=== PATIENT | female | born 1965 | race Caucasian/White ===

== ENCOUNTER 2016-02-26 08:07 | Observation (INO) | payer BC, OTHER ==
[~2016-02-26] VITALS: Ht 162.6 cm; Wt 93.6 kg
[2016-02-26] VITALS (14 sets, daily range): BP systolic 136–152; BP diastolic 66–93; PULSE 71–79; RESP 16–20; TEMP 97.7–98.7; O2SAT 94–96
[~2016-02-26 08:07] MED LIST: IBUP-238 PO; LORTA5 PO; OXYC-360 PO
[2016-02-26] MEDS ORDERED: SODIUM CHLOR 0.9% 1000 ML INJ 1,000 ML IV ONE (08:17)
[2016-02-26 08:26] LABS: AUTOMATED NEUTROPHIL # 7.3 TH/MM3 (1.8-7.7); BASOPHIL # 0.1 TH/MM3 (0-0.2); BASOPHIL % 0.5 % (0.0-2.0); EOSINOPHIL # 0.2 TH/MM3 (0-0.4); HEMATOCRIT 48.9 % (35.0-46.0); HEMO FLAGS DIFF FINAL; LYMPH % 19.3 % (9.0-44.0); MEAN CELL VOLUME 91.8 FL (80.0-100.0); MEAN CORPUSCULAR HEMOGLOBIN 29.7 PG (27.0-34.0); MEAN CORPUSCULAR HGB CONC 32.3 % (32.0-36.0); MONO % 7.1 % (0.0-8.0); NEUT % 71.1 % (16.0-70.0); PLATELET COUNT 321 TH/MM3 (150-450); RED BLOOD COUNT 5.32 MIL/MM3 (4.00-5.30); RED CELL DISTRIBUTION WIDTH 12.6 % (11.6-17.2); WHITE BLOOD COUNT 10.3 TH/MM3 (4.0-11.0)
--- NOTE | 2016-02-26 08:26 | PD ---
HPI Chief Complaint: neuro symptoms Time Seen by Provider: 08:11 Travel History International Travel<30 days: No Contact w/Intl Traveler<30days: No Traveled to known affect area: No History of Present Illness HPI The patient is a 51-year-old female who presents to the emergency department for neuro symptoms. The patient states she awakened at 6 AM, showered, and was put in the birds away. Patient states when she bent over to put the birds away she became dizzy. The patient states she felt dizzy, lightheaded, had blurry vision, and felt weak on the right side of her body. The patient states that when she was walking she felt she was walking off balance, walking to the right. She denied any dysarthria, however, states she was not speaking and at that time. The patient states her symptoms have slightly improved, however, she still feels weak on the right side when ambulating. The patient states her blurry vision has resolved. The patient does have a history of tobacco use, borderline hypertension, but takes no medications. She denies any history of hyperlipidemia, diabetes, previous CVA/ TIA, or previous history of CAD. The patient does not have a primary physician. PFSH Past Medical History Narrative Medical Possible borderline hypertension Medical History: Denies Significant Hx Past Surgical History Narrative Surgical Had her teeth removed Social History Alcohol Use: No Tobacco Use: Yes (1ppd) Allergies-Medications (Allergen,Severity, Reaction): Coded Allergies: No Known Allergies (Unverified , 02/26/16) Reported Meds & Prescriptions Reported Meds & Active Scripts Active No Active Prescriptions or Reported Medications Review of Systems Except as stated in HPI: all other systems reviewed are Neg General / Constitutional: No: Fever Eyes: Positive: Blurred Vision HENT: Positive: Lightheadedness, No: Headaches Cardiovascular: No: Chest Pain or Discomfort Respiratory: No: Shortness of Breath Gastrointestinal: No: Nausea, Vomiting, Abdominal Pain Musculoskeletal: Positive: Weakness Neurologic: Positive: Weakness, Ataxia, No: Headache, Change in Mentation, Paresthesia, Sensory Disturbance Physical Exam Narrative GENERAL: Awake, alert, pleasant 51-year-old female who appears her stated age and is in no acute respiratory distress. SKIN: Warm and dry. HEAD: Atraumatic. Normocephalic. EYES: Pupils equal and round. Patient was wearing glasses. She is able to see fingers at a distance of 2 feet without difficulty. Pupils equal round reactive to light. EOMs are intact. Visual durán are symmetric. ENT: No nasal bleeding or discharge. Mucous membranes pink and moist. Upper dentures in place. NECK: Trachea midline. No JVD. CARDIOVASCULAR: Regular rate and rhythm. No murmur appreciated. RESPIRATORY: No accessory muscle use. Clear to auscultation. Breath sounds equal bilaterally. GASTROINTESTINAL: Abdomen soft, non-tender, nondistended. No rebound tenderness. MUSCULOSKELETAL: No obvious deformities. No clubbing. No cyanosis. No edema. NEUROLOGICAL: Awake and alert. No obvious cranial nerve deficits. Motor grossly within normal limits. Normal speech. Patient is alert and oriented 4. There is no drift of the upper or lower extremities. Smile is symmetric. Visual durán are symmetric. Patient is able to see fingers at a distance of 2 feet without difficulty. Sensation is symmetric and present bilaterally on the face, arms, legs. Finger to nose is normal. [id number] is normal. Ambulation was attempted, the patient appears slightly off balance, but was able to ambulate. PSYCHIATRIC: Appropriate mood and affect; insight and judgment normal. Data Data Last Documented VS Vital Signs Date Time Temp Pulse Resp B/P Pulse Ox O2 Delivery O2 Flow Rate FiO2 02/26/16 08:45 78 16 142/76 96 Room Air 02/26/16 08:15 97.8 Orders Cath For Specimen (02/26/16 08:17) Neuro Checks Q2HX12,Q4H (02/26/16 08:17) Nursing Bedside Swallow Assess .ONCE (02/26/16 08:17) Activity Bed Rest (02/26/16 08:17) Diet Npo (02/26/16 Breakfast) Prothrombin Time / Inr (Pt) (02/26/16 08:17) Act Partial Throm Time (Ptt) (02/26/16 08:17) Complete Blood Count With Diff (02/26/16 08:17) Basic Metabolic Panel (Bmp) (02/26/16 08:17) Fibrinogen (02/26/16 08:17) Creatine Kinase (Cpk) (02/26/16 08:17) Troponin I (02/26/16 08:17) Ua Includes Microscopic (02/26/16 08:17) Drug Screen, Random Urine (02/26/16 08:17) Type And Screen (02/26/16 08:17) Ct Brain W/O Iv Contrast(Rout) (02/26/16 ) Electrocardiogram (02/26/16 ) Beta Hcg (Quant/Titer) (02/26/16 08:17) Consult Neurology (02/26/16 08:17) Sodium Chlor 0.9% 1000 Ml Inj (Ns 1000 M (02/26/16 08:17) Blood Glucose (02/26/16 08:17) Ecg Monitoring (02/26/16 08:17) Iv Access Insert/Monitor (02/26/16 08:17) NPO (02/26/16 08:17) Oximetry (02/26/16 08:17) Oxygen Administration (02/26/16 08:17) Resp Oxygen Brad C Titrat 1-4 L (02/26/16 08:17) Aspirin (Aspirin) (02/26/16 08:45) (Hub Use Only)Inp Phy Cons/Ref (02/26/16 ) Labs Laboratory Tests Test 02/26/16 08:15 White Blood Count 10.3 TH/MM3 Red Blood Count 5.32 MIL/MM3 Hemoglobin 15.8 GM/DL Hematocrit 48.9 % Mean Corpuscular Volume 91.8 FL Mean Corpuscular Hemoglobin 29.7 PG Mean Corpuscular Hemoglobin 32.3 % Concent Red Cell Distribution Width 12.6 % Platelet Count 321 TH/MM3 Mean Platelet Volume 8.2 FL Neutrophils (%) (Auto) 71.1 % Lymphocytes (%) (Auto) 19.3 % Monocytes (%) (Auto) 7.1 % Eosinophils (%) (Auto) 2.0 % Basophils (%) (Auto) 0.5 % Neutrophils # (Auto) 7.3 TH/MM3 Lymphocytes # (Auto) 2.0 TH/MM3 Monocytes # (Auto) 0.7 TH/MM3 Eosinophils # (Auto) 0.2 TH/MM3 Basophils # (Auto) 0.1 TH/MM3 CBC Comment DIFF FINAL Differential Comment Prothrombin Time 10.2 SEC Prothromb Time International 0.9 RATIO Ratio Activated Partial 26.2 SEC Thromboplast Time Fibrinogen 348 mg/dL Sodium Level 143 MEQ/L Potassium Level 4.0 MEQ/L Chloride Level 107 MEQ/L Carbon Dioxide Level 27.7 MEQ/L Anion Gap 8 MEQ/L Blood Urea Nitrogen 18 MG/DL Creatinine 0.61 MG/DL Estimat Glomerular Filtration 103 ML/MIN Rate Random Glucose 134 MG/DL Calcium Level 9.2 MG/DL Total Creatine Kinase 62 U/L Troponin I LESS THAN 0.02 NG/ML Human Chorionic Gonadotropin, 3 MIU/ML Quant MDM Medical Screen Exam Complete: Yes Emergency Medical Condition: Yes Medical Record Reviewed: Yes EKG Prior to Arrival: No Differential Diagnosis Differential diagnoses includes vertebral basilar insufficiency, CVA, TIA, vertigo, intracranial hemorrhage, hyponatremia. Narrative Course IV was established, labs are drawn and sent, and the patient was placed on cardiac telemetry monitoring and continuous pulse oximetry monitoring. Stroke scale was called as patient does have mild ataxia with ambulation, however, her stroke scale is 0. I discussed the patient with the on-call neurologist, Dr. Bethea, who agrees no TPA is indicated as patient scale is 0. The patient went immediately to CT for CT of the brain. I discussed the CT findings with the radiologist, states CT the brain is negative. The patient is not a candidate for TPA, stroke scale 0, but has continuing difficulty with ambulation with proceed weakness of the right side. Therefore, patient will be 23 hour observation for MRI of the brain to evaluate for VBI. CT the brain was negative and the patient was administered aspirin 325 mg orally. The patient does not have a primary physician, therefore, the on-call medical service was paged for 23 hour observation. Stroke Alert NIHSS NIH Stroke Scale Result: 0 NIHSS Time Completed: 08:20 Thrombolytic Contraindications Contraindications Comment: The patient's symptoms had somewhat improved according to the patient and the patient's NIHSS was 0. Procedures Interpretation(s) EKG reveals normal sinus rhythm with a rate of 77. No ischemic changes or ectopy noted. Last Impressions Head CT 02/26/16 0000 Signed Impressions: Service Date/Time: Friday, February 26, 2016 08:21 - CONCLUSION: Normal examination. Pa Novoa MD Laboratory Tests Test 02/26/16 08:15 White Blood Count 10.3 TH/MM3 Red Blood Count 5.32 MIL/MM3 Hemoglobin 15.8 GM/DL Hematocrit 48.9 % Mean Corpuscular Volume 91.8 FL Mean Corpuscular Hemoglobin 29.7 PG Mean Corpuscular Hemoglobin 32.3 % Concent Red Cell Distribution Width 12.6 % Platelet Count 321 TH/MM3 Mean Platelet Volume 8.2 FL Neutrophils (%) (Auto) 71.1 % Lymphocytes (%) (Auto) 19.3 % Monocytes (%) (Auto) 7.1 % Eosinophils (%) (Auto) 2.0 % Basophils (%) (Auto) 0.5 % Neutrophils # (Auto) 7.3 TH/MM3 Lymphocytes # (Auto) 2.0 TH/MM3 Monocytes # (Auto) 0.7 TH/MM3 Eosinophils # (Auto) 0.2 TH/MM3 Basophils # (Auto) 0.1 TH/MM3 CBC Comment DIFF FINAL Differential Comment Prothrombin Time 10.2 SEC Prothromb Time International 0.9 RATIO Ratio Activated Partial 26.2 SEC Thromboplast Time Fibrinogen 348 mg/dL Sodium Level 143 MEQ/L Potassium Level 4.0 MEQ/L Chloride Level 107 MEQ/L Carbon Dioxide Level 27.7 MEQ/L Anion Gap 8 MEQ/L Blood Urea Nitrogen 18 MG/DL Creatinine 0.61 MG/DL Estimat Glomerular Filtration 103 ML/MIN Rate Random Glucose 134 MG/DL Calcium Level 9.2 MG/DL Total Creatine Kinase 62 U/L Troponin I LESS THAN 0.02 NG/ML Human Chorionic Gonadotropin, 3 MIU/ML Quant Physician Communication Physician Communication The on-call medical service was paged for 23 hour observation. I discussed the patient with Dr. Ibrahim who agrees with 23 hour observation. Diagnosis Diagnosis: Primary Impression: Right sided weakness Additional Impression: Ataxia Admitting Physician Requests: Observation Scripts No Active Prescriptions or Reported Meds Condition: Stable Jonathan Monique MD Feb 26, 2016 08:26
[2016-02-26 08:32] LABS: CHLORIDE 107 MEQ/L (98-107); SODIUM (NA) 143 MEQ/L (136-145)
[2016-02-26 08:35] LABS: ANION GAP 8 MEQ/L (5-15); BICARBONATE 27.7 MEQ/L (21.0-32.0); BLOOD UREA NITROGEN 18 MG/DL (7-18)
--- NOTE | 2016-02-26 08:38 | RADHPO ---
EXAM DATE/TIME: 02/26/2016 08:21 [facility] COMPARISON: No previous studies available for comparison. INDICATIONS : Stroke alert. Unsteady gait towards right side. Dizziness. Now resolved. RADIATION DOSE: 57.81 CTDIvol (mGy) This report was called by Dr. Paredes to Dr. Monique at 8: 37 AM. MEDICAL HISTORY : None SURGICAL HISTORY : None. ENCOUNTER: Initial ACUITY: 1 day PAIN SCALE: 0/10 LOCATION: cranial TECHNIQUE: Multiple contiguous axial images were obtained of the head. Using automated exposure control and adj ustment of the mA and/or kV according to patient size, radiation dose was kept as low as reasonably a chievable to obtain optimal diagnostic quality images. FINDINGS: CEREBRUM: The ventricles are normal for age. No evidence of midline shift, mass lesion, hemorrhage or acute in farction. No extra-axial fluid collections are seen. POSTERIOR FOSSA: The cerebellum and brainstem are intact. The 4th ventricle is midline. The cerebellopontine angle i s unremarkable. EXTRACRANIAL: The visualized portion of the orbits is intact. SKULL: The calvaria is intact. No evidence of skull fracture. CONCLUSION: Normal examination. Pa Novoa MD on February 26, 2016 at 8:34 Board Certified Radiologist. This report was verified electronically.
[2016-02-26 08:39] LABS: GLOMERULAR FILTRATION RATE 103 ML/MIN (>89)
[2016-02-26 08:43] LABS: BETA HCG QUANT 3 MIU/ML (0-5)
[2016-02-26 08:44] LABS: CREATINE KINASE 62 U/L (26-192)
[2016-02-26] MEDS ORDERED: ASPIRIN 325 MG TAB PO ONE (08:45)
[2016-02-26 09:01] LABS: APTT (PATIENT) 26.2 SEC (24.3-30.1); INTERNATIONAL NORMALIZED RATIO 0.9 RATIO; PROTHROMBIN TIME - PATIENT 10.2 SEC (9.8-11.6)
[2016-02-26] MEDS ORDERED: GLUCAGON 1 MG/ML VIAL IM/SQ PRN (09:45)
[2016-02-26] MEDS ORDERED: DEXTROSE 50% IN WATER 50 ML VIAL(D50) IV PUSH PRN (09:45)
[2016-02-26] MEDS ORDERED: SODIUM CHLORIDE 0.9% FLUSH 5 ML FLUSH IVF PRN (09:45)
--- NOTE | 2016-02-26 10:35 | EKG ---
Date Performed: 02/26/2016 Time Performed: 08:32:16 PTAGE: 51 years EKG: Sinus rhythm Normal ECG NO PREVIOUS TRACING DOCTOR: Krish Andrade Interpretating Date/Time 05/28/2016 08:25:14
[2016-02-26] MEDS: INSULIN ASPART SUPPLEMENTAL SCALE SQ SCH ×3 (11:00→21:00)
[2016-02-26 11:21] LABS: BLOOD, URINE TRACE (NEG); GLUCOSE,URINE NEG (NEG); KETONE, URINE NEG (NEG); NITRITE,URINE NEG (NEG)
[2016-02-26 11:28] LABS: AMPHETAMINE, URINE NEG (NEG); COCAINE, URINE NEG (NEG); METHOD OF COLLECTION CATH; URINE COLOR YELLOW (YELLW/STRAW)
[2016-02-26 11:29] LABS: RBC, URINE 0-3 /hpf (0-3)
[2016-02-26 11:36] LABS: BARBITURATES, URINE NEG (NEG)
--- NOTE | 2016-02-26 15:28 | HHI.HP ---
[facility] No Primary Care Physician Admission Diagnosis right sided weakness with ataxia, dizziness, rule out TIA/CVA/VBI Diagnoses: Chief Complaint: Weakness, dizziness Travel History International Travel<30 Days: No Contact w/Intl Traveler <30 Da: No Traveled to Known Affected Are: No History of Present Illness Patient is a 51-year-old female with minimal past history who came into the hospital after acute onset of dizziness after bending over. 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 Patient came to the emergency room for further evaluation. Patient actually says this has never happened to her before. She denies any speech dysfunction no headache nor shortness of breath. Patient has never had chest pain or dyspnea on exertion. Patient does have some chest discomfort associated with heartburn for which she has taken Zantac. Occasionally this is radiating into her left arm. The symptoms are nonexertional and appeared to a occur when she is at rest. She does not exercise and has put on about 30 pounds this year. Review of Systems Constitutional: COMPLAINS OF: Dizziness, DENIES: Diaphoretic episodes, Fatigue , Fever, Weight gain, Weight loss, Chills, Change in appetite, Night Sweats Endocrine: DENIES: Abnorml menstrual pattern, Heat/cold intolerance, Polydipsia , Polyuria, Polyphagia Eyes: DENIES: Blurred vision, Diplopia, Eye inflammation, Eye pain, Vision loss , Photosensitivity, Double Vision Ears, nose, mouth, throat: DENIES: Tinnitus, Hearing loss, Vertigo, Nasal discharge, Oral lesions, Throat pain, Hoarseness, Ear Pain, Running Nose, Epistaxis, Sinus Pain, Toothache, Odynophagia Respiratory: DENIES: Apneas, Cough, Snoring, Wheezing, Hemoptysis, Sputum production, Shortness of breath Cardiovascular: DENIES: Chest pain, Palpitations, Syncope, Dyspnea on Exertion , PND, Lower Extremity Edema, Orthopnea, Claudication Gastrointestinal: DENIES: Abdominal pain, Black stools, Bloody stools, Constipation, Diarrhea, Nausea, Vomiting, Difficulty Swallowing, Anorexia Genitourinary: DENIES: Abnormal vaginal bleeding, Dysmenorrhea, Dyspareunia, Sexual dysfunction, Urinary frequency, Urinary incontinence, Urgency, Hematuria , Dysuria, Nocturia, Vaginal discharge Integumentary: DENIES: Abnormal pigmentation, Pruritus, Rash, Nail changes, Breast masses, Breast skin changes, Nipple discharge Immunologic/allergic: DENIES: Eczema, Urticaria Neurologic: COMPLAINS OF: Abnormal gait, Localized weakness (right extremity) Psychiatric: DENIES: Anxiety, Confusion, Mood changes, Depression, Hallucinations, Agitation, Suicidal Ideation, Homicidal Ideation, Delusions Other dyspepsea Past Family Social History Past Medical History Denies Past Surgical History Dental extraction Reported Medications None Allergies: Coded Allergies: No Known Allergies (Unverified , 02/26/16) Active Ordered Medications Reviewed and are in the the medical record Family History Family history diabetes, hypertension, no strokes Social History Smokes a pack a day, no alcohol, Physical Exam Vital Signs Vital Signs Date Time Temp Pulse Resp B/P Pulse Ox O2 Delivery O2 Flow Rate FiO2 02/26/16 12:05 98.7 75 17 152/93 94 02/26/16 11:00 75 18 144/85 96 Room Air 02/26/16 10:00 74 16 136/67 96 Room Air 02/26/16 09:15 76 16 139/66 96 Room Air 02/26/16 09:00 76 16 136/66 96 Room Air 02/26/16 08:45 78 16 142/76 96 Room Air 02/26/16 08:34 16 96 Room Air 02/26/16 08:34 96 Room Air 02/26/16 08:15 79 16 96 Room Air 02/26/16 08:15 97.8 79 16 145/73 96 Physical Exam GENERAL: This is a well-nourished, well-developed patient, in no apparent distress. SKIN: No rashes, ecchymoses or lesions. Cool and dry. HEAD: Atraumatic. Normocephalic. No temporal or scalp tenderness. EYES: Pupils equal round and reactive. Extraocular motions intact. No scleral icterus. No injection or drainage. ENT: Nose without bleeding, purulent drainage or septal hematoma. Throat without erythema, tonsillar hypertrophy or exudate. Uvula midline. Airway patent. NECK: Trachea midline. No JVD or lymphadenopathy. Supple, nontender, no meningeal signs. CARDIOVASCULAR: Regular rate and rhythm without murmurs, gallops, or rubs. RESPIRATORY: Clear to auscultation. Breath sounds equal bilaterally. No wheezes , rales, or rhonchi. GASTROINTESTINAL: Abdomen soft, non-tender, nondistended. No hepato-splenomegaly , or palpable masses. No guarding. MUSCULOSKELETAL: Extremities without clubbing, cyanosis, or edema. No joint tenderness, effusion, or edema noted. No calf tenderness. Negative Homans sign bilaterally. NEUROLOGICAL: Awake and alert. Cranial nerves II through XII intact. Motor and sensory grossly within normal limits. Five out of 5 muscle strength in all muscle groups. Normal speech. Laboratory Laboratory Tests Test 02/26/16 02/26/16 08:15 11:00 White Blood Count 10.3 Red Blood Count 5.32 Hemoglobin 15.8 Hematocrit 48.9 Mean Corpuscular Volume 91.8 Mean Corpuscular Hemoglobin 29.7 Mean Corpuscular Hemoglobin 32.3 Concent Red Cell Distribution Width 12.6 Platelet Count 321 Mean Platelet Volume 8.2 Neutrophils (%) (Auto) 71.1 Lymphocytes (%) (Auto) 19.3 Monocytes (%) (Auto) 7.1 Eosinophils (%) (Auto) 2.0 Basophils (%) (Auto) 0.5 Neutrophils # (Auto) 7.3 Lymphocytes # (Auto) 2.0 Monocytes # (Auto) 0.7 Eosinophils # (Auto) 0.2 Basophils # (Auto) 0.1 CBC Comment DIFF FINAL Differential Comment Prothrombin Time 10.2 Prothromb Time International 0.9 Ratio Activated Partial 26.2 Thromboplast Time Fibrinogen 348 Sodium Level 143 Potassium Level 4.0 Chloride Level 107 Carbon Dioxide Level 27.7 Anion Gap 8 Blood Urea Nitrogen 18 Creatinine 0.61 Estimat Glomerular Filtration 103 Rate Random Glucose 134 Calcium Level 9.2 Total Creatine Kinase 62 Troponin I LESS THAN 0.02 Human Chorionic Gonadotropin, 3 Quant Blood Type O POSITIVE Antibody Screen NEGATIVE Blood Bank Comment Urine Collection Type CATH Urine Color YELLOW Urine Turbidity CLEAR Urine pH 7.0 Urine Specific [place] 1.009 Urine Protein NEG Urine Glucose (UA) NEG Urine Ketones NEG Urine Occult Blood TRACE Urine Nitrite NEG Urine Bilirubin NEG Urine Leukocyte Esterase NEG Urine RBC 0-3 Urine Amorphous Sediment FEW Urine Collection Time 11:00 Urine Opiates Screen NEG Urine Barbiturates Screen NEG Urine Amphetamines Screen NEG Urine Benzodiazepines Screen NEG Urine Cocaine Screen NEG Urine Cannabinoids Screen NEG Result Diagram: 02/26/16 0815 02/26/16 0815 Imaging Last Impressions Head CT 02/26/16 0000 Signed Impressions: Service Date/Time: Friday, February 26, 2016 08:21 - CONCLUSION: Normal examination. Pa Novoa MD Assessment and Plan Problem List: (1) Neurological symptoms ICD Code: R29.90 Status: Acute Plan: R/O CVA/TIA, cervical radiculopathy, vertigo, patient with Ataxia Images pending Follow-up 2-D echo Orthostatic vital signs neuro consult pending (2) Atypical chest pain ICD Code: R07.89 Status: Acute Plan: May be GI related Patient will need serial cardia Enzymes and follow up EKG Current ekg on my review is normal in rate and rhythm Discussed Condition With Patient, Alejandra Gomez M.D., MD Feb 26, 2016 15:28
[2016-02-26] MEDS ORDERED: LORazepam 2 MG/ML VIAL IV PUSH ONE (16:00)
[2016-02-26] MEDS ORDERED: MECLIZINE HCL 25 MG TAB PO PRN (16:00)
[2016-02-26 16:16] LABS: HEMOGLOBIN A1b 1.9 %; HEMOGLOBIN Ao 84.9 %; HEMOGLOBIN LA1C 2.2 %
[2016-02-26] MEDS: PANTOPRAZOLE SOD 40 MG DELAYED RELEASE TAB PO SCH (17:13)
[2016-02-26] MEDS: SODIUM CHLORIDE 0.9% FLUSH 5 ML FLUSH IVF SCH (21:48)
[2016-02-27] VITALS: BP 136/80; PULSE 71; RESP 20; TEMP 96.7; O2SAT 96
[2016-02-27 04:00] VITALS: BP 135/79; PULSE 69; RESP 20; TEMP 96.9; O2SAT 95
[2016-02-27] MEDS: INSULIN ASPART SUPPLEMENTAL SCALE SQ SCH ×3 (06:14→16:00)
[2016-02-27 08:00] VITALS: PULSE 85; O2SAT 96
[2016-02-27] MEDS ORDERED: ASPIRIN EC 81 MG TABEC PO SCH (09:00)
[2016-02-27 09:06] VITALS: BP 139/71; PULSE 70; RESP 16; TEMP 97; O2SAT 96
[2016-02-27] MEDS: PANTOPRAZOLE SOD 40 MG DELAYED RELEASE TAB PO SCH (09:08)
[2016-02-27] MEDS: SODIUM CHLORIDE 0.9% FLUSH 5 ML FLUSH IVF SCH (09:11)
[2016-02-27 09:23] LABS: HDL CHOLESTEROL 33.3 MG/DL (40.0-60.0)
--- NOTE | 2016-02-27 09:45 | MB ---
cc: HARRIETT MIRANDA MD DATE OF CONSULTATION 02/26/2016 REASON FOR CONSULTATION Stroke alert. HISTORY OF THE PRESENT ILLNESS A 51-year-old female with no significant past medical history who was brought into the hospital at [facility] after an acute onset of dizziness after bending over. The patient stated that she woke up this morning normal with no symptoms and then when she got up to pick her purse she felt dizzy and she thought that she had right upper and lower extremity numbness rather than weakness. She denies any difficulty in speech as she states that she did not speak at that time and she denies any face numbness as well. She denies any history of TIA or stroke or a similar episode in the past. She describes the feeling as being lightheaded, no double vision and she felt nauseous and actually she threw up. No difficulty in speech. No headache, no loss of consciousness or disorientation or loss of sphincter control. She denies any history of chronic sinus infection or chronic middle ear infection. She denies any ringing in the ears or difficulty hearing. The symptoms resolved within 30 minutes. The patient is not on anti platelet medication. REVIEW OF SYSTEMS A 12-point review of systems is negative except for what is stated in the HPI. PAST MEDICAL HISTORY Not applicable. PAST SURGICAL HISTORY Dental extraction. MEDICATIONS None. ALLERGIES No known allergies. FAMILY HISTORY Positive for diabetes, hypertension. No history of strokes. SOCIAL HISTORY Smokes one-pack a day. Denies alcohol and illicit drug use. PHYSICAL EXAMINATION General: Well-nourished, good historian. Not in apparent distress. HEENT: Atraumatic, normocephalic. Intact vision and intact hearing. NECK: Trachea in the midline. No carotid bruits. No signs of meningeal irritation. CARDIOVASCULAR: Regular rate and rhythm. No murmurs. RESPIRATORY: Clear to auscultation. No wheezes. MUSCULOSKELETAL: Extremities without clubbing, cyanosis or edema. Moves all extremities equally. NEUROLOGICAL: Awake, alert, oriented to time, person and place. Intact speech. Intact speech content. Cranial nerves II-XII are intact. Motor system 5/5 bilateral, symmetrical throughout. Normal tone. No abnormal movements. Sensation is intact bilateral and symmetrical. No sensory extinction. Cerebellar signs intact bilateral and symmetrical [id number] and [id number]. Reflexes 2+ bilateral symmetrical throughout. Plantars are bilaterally downgoing. Gait and stance, intact stance. Negative Romberg sign. Normal gait. PSYCHOLOGIC: Intact judgment and behavior. No hallucinations. LABORATORY DATA White blood cells 10.3, hemoglobin 15.8, MCV 91.8, platelet count 321. INR 0.9.Sodium 143, potassium 4.0, BUN 18, creatinine 0.61. Urine tox is negative. IMAGING - Head CT scan normal examination with no acute intracranial abnormality. DIAGNOSTIC IMPRESSION 1. Transient ischemic attack. 2. Peripheral vertigo. PLAN 1. Neurological checks q.4h. 2. Aspirin 81 mg daily. 3. Meclizine 25 mg q.8h as needed. 4. MRI brain. 5. Carotid ultrasound. 6. Carotid echo. 7. Telemetry. 8. DVT prophylaxis. 9. Fall precautions. 10. GI prophylaxis. Thank you for the opportunity to participate in the care of your patient. MD LAUREN Mccallum/LILY /6:37 PM /9:37 AM MACARIO
[2016-02-27] MEDS ORDERED: LORazepam 2 MG/ML VIAL IV PUSH ONE (10:45)
--- NOTE | 2016-02-27 11:59 | RADHPO ---
EXAM DATE/TIME: 02/27/2016 11:28 [facility] COMPARISON: CT BRAIN W/O CONTRAST, February 26, 2016, 8:21. INDICATIONS : Right sided weakness. MEDICAL HISTORY : None. SURGICAL HISTORY : None. ENCOUNTER: Initial ACUITY: 2 day PAIN SCORE: 0/10 LOCATION: head TECHNIQUE: Multiplanar, multisequence MRI of the brain was performed without contrast. FINDINGS: CEREBRUM: The ventricles are normal for age. No evidence of midline shift, mass lesion, hemorrhage or acute in farction. No extraaxial fluid collections are seen. The pituitary gland and suprasellar cistern are normal in configuration. WHITE MATTER: No significant signal abnormalities are seen in the white matter. POSTERIOR FOSSA: The cerebellum and brainstem are intact. The 4th ventricle is midline. The cerebellopontine angle is unremarkable. The cerebellar tonsils are normal in position. DIFFUSION IMAGING: No focal areas of restricted diffusion are seen. No evidence of acute infarction. EXTRACRANIAL: The visualized portions of the orbits and paranasal sinuses are unremarkable. CONCLUSION: Normal examination. Gaviota Lee MD on February 27, 2016 at 11:57 Board Certified Radiologist. This report was verified electronically.
[2016-02-27 13:41] VITALS: BP 156/70; PULSE 75; RESP 15; TEMP 96.8; O2SAT 97
--- NOTE | 2016-02-27 13:49 | RADHPO ---
EXAM DATE/TIME: 02/27/2016 11:28 [facility] COMPARISON: No previous studies available for comparison. INDICATIONS : Right sided weakness. MEDICAL HISTORY : None. SURGICAL HISTORY : None. ENCOUNTER: Initial ACUITY: 2 day PAIN SCORE: 0/10 LOCATION: head Please note a normal MRA of the brain does not entirely exclude the possibility of a small aneurysm, nor the possibility of distal intracranial vessel disease. TECHNIQUE: 3D time of flight MRA was performed. Source images, multiplanar STS MIP, and 3D volume MIP reconstru ctions were reviewed. FINDINGS: There is excellent visualization of the major intracranial arteries out to the second-order branch ve ssels. There is no evidence for aneurysm, vessel truncation or stenosis, and no evidence for vascula r malformation. CONCLUSION: Negative MRA of the carotids.. Jed Salazar MD FACR on February 27, 2016 at 13:46 Board Certified Radiologist. This report was verified electronically.
--- NOTE | 2016-02-27 14:00 | RADHPO ---
EXAM DATE/TIME: 02/27/2016 11:28 [facility] COMPARISON: No previous studies available for comparison. INDICATIONS: Extremity numbness. Right sided numbness. MEDICAL HISTORY: None. SURGICAL HISTORY: Dental. ENCOUNTER: Initial ACUITY: 2 day PAIN SCORE: 2/10 LOCATION: Neck. TECHNIQUE: Multiplanar, multisequence MRI examination of the cervical spine was performed. FINDINGS: Examination limited because of patient motion. By MRI the marrow signal in the cervical spine appears homogenous. Signal intensity cord is normal. The cerebellar tonsils are in their normal anatomic position. C2-C3: The thecal sac has a normal configuration. There is no evidence of disc herniation or spinal canal s tenosis. The neural foramina are patent bilaterally. C3-C4: The thecal sac has a normal configuration. There is no evidence of disc herniation or spinal canal s tenosis. The neural foramina are patent bilaterally. C4-C5: The thecal sac has a normal configuration. There is no evidence of disc herniation or spinal canal s tenosis. The neural foramina are patent bilaterally. C5-C6: The thecal sac has a normal configuration. There is no evidence of disc herniation or spinal canal s tenosis. The neural foramina are patent bilaterally. C6-C7: The thecal sac has a normal configuration. There is no evidence of disc herniation or spinal canal s tenosis. The neural foramina are patent bilaterally. C7-T1: The thecal sac has a normal configuration. There is no evidence of disc herniation or spinal canal s tenosis. The neural foramina are patent bilaterally. CONCLUSION: 1. Moderate motion artifact. 2. There are degenerative changes evident to a minimal degree. Motion artifacts precludes us exclud ing subtle disc herniation. I think the possibility of missing such is not very high in spite of the motion. Jed Salazar MD FACR on February 27, 2016 at 13:45 Board Certified Radiologist. This report was verified electronically.
[2016-02-27] MEDS ORDERED: GADODIAMIDE PF 287 MG/ML 20 ML VIAL (for RAD MRI) IV ONE ×2 (14:02)
--- NOTE | 2016-02-27 14:04 | HHI.PR ---
Subjective Remarks Patient seen and examined today with Dr. Stoddard, patient states that her dizziness has improved. Only some mild lightheadedness this morning. Otherwise she is doing much better and very eager to go home. Objective Vitals Vital Signs Date Time Temp Pulse Resp B/P Pulse Ox O2 Delivery O2 Flow Rate FiO2 02/27/16 13:41 96.8 75 15 156/70 97 02/27/16 09:06 97.0 70 16 139/71 96 02/27/16 08:00 85 02/27/16 04:00 96.9 69 20 135/79 95 02/27/16 00:00 96.7 71 20 136/80 96 02/26/16 21:35 96 21 02/26/16 20:15 72 02/26/16 20:00 98.1 71 20 149/76 96 02/26/16 17:52 95 21 02/26/16 16:34 97.7 78 18 138/81 95 02/26/16 16:31 97.7 72 18 142/91 95 142/82 I/O 02/26/16 02/26/16 02/26/16 02/27/16 02/27/16 02/27/16 07:00 15:00 23:00 07:00 15:00 23:00 Intake Total 600 ml 300 ml Balance 600 ml 300 ml Intake Oral 600 ml 300 ml # Voids 2 1 # Bowel Movements 0 0 Result Diagram: 02/26/1681402/26/1615 Objective Remarks GENERAL: Well-developed, well-nourished, in no acute distress. alert and orientated HEENT: Head is normocephalic without any lesions or masses noted. Facial features are symmetric. Eyes: Extraocular muscles are intact. Conjunctivae were clear. NECK: Supple without any masses. Trachea midline no deviation. No JVD, CARDIAC: Regular rhythm, regular rate. S1/S2 are heard. No murmurs gallops or rubs. LUNGS: Clear to auscultation bilaterally. No wheeze, rhonchi or rales. No use of accessory muscles on inspiration or expiration. ABDOMEN: Soft, nontender. Nondistended. Bowel sounds heard in all 4 quadrants. No organomegaly or masses. Negative rebound, negative guarding EXTREMITIES: No edema, pulses are equal bilaterally. No cyanosis or clubbing NEUROLOGY: Mood and affect appear appropriate. Cranial nerves II through XII grossly intact. Moving all extremities, speech is clear Urinary Catheter: No Vascular Central Line Catheter: No A/P Assessment and Plan Dizziness, lightheadedness, ataxia Patient admitted to rule out CVA/TIA, cervical radiculopathy, vertigo CT scan of the brain was unremarkable for any acute etiology MRI of the brain was negative for any acute etiology MRA of the brain was unremarkable MRI of the cervical spine is without any significant abnormalities for the patient's presenting symptoms MRA of the neck is unremarkable Echocardiogram indicates normal systolic function, ejection fraction 60-65%. No wall abnormalities. Patient started on aspirin and meclizine as needed Neurology is following the patient Physical therapy evaluate patient indicates home with no recommendations. Occupational therapy evaluate patient indicates home with no recommendations Hyperlipidemia LDL 112 Start Lipitor 10 mg daily Chest pain, atypical likely GI in nature Cardiac enzymes were negative Patient continued on aspirin Serial EKGs shows sinus rhythm without any changes DVT prevention Sequential compression devices Written by Yogi Corado PA-C, acting as scribe for Dr. Stoddard on 02/27/16 at 1520. The documentation accurately reflects the work and decisions performed face-to- face by Dr. Stoddard on 02/27/16 at 1520. Discharge Planning Discharge home in stable condition after workup complete Activity: Ad shabana. Diet: Healthy heart diet Medications per medication reconciliation Follow-up primary medical doctor in one week, neurologist in 2 weeks Yogi Corado Feb 27, 2016 14:04
--- NOTE | 2016-02-27 15:34 | RADHPO ---
EXAM DATE/TIME: 02/27/2016 12:58 [facility] COMPARISON: No previous studies available for comparison. INDICATIONS : Stroke. CONTRAST: 20 cc Omniscan (gadodiamide) IV MEDICAL HISTORY : None. SURGICAL HISTORY : None. ENCOUNTER: Initial ACUITY: 2 day PAIN SCORE: 0/10 LOCATION: neck Percent stenosis is calculated using the diameter of the stenotic region over the diameter of the nor mal distal internal carotid artery. TECHNIQUE: Bolus infused MRA of the extracranial circulation was performed using a neurovascular coil. Post pro cessing was performed including rotationg subvolume maximum intensity projections of each carotid art giovanni, rotating full volume maximum intensity projections of both carotid arteries, sagittal and shepherd l sliding thin slab reformations of each carotid artery, and left oblique sliding thin slab reformati on through the aortic arch to include the origin of the arch branch vessels. FINDINGS: AORTIC ARCH: There is a three vessel origin of the great vessels from the aorta. No evidence of ostial narrowing. RIGHT CAROTID: The common carotid artery is intact. The carotid bulb has a normal configuration without ulceration or narrowing. The internal carotid artery lumen is smooth without stenosis. The external carotid ar mandy is intact. LEFT CAROTID: The common carotid artery is intact. The carotid bulb has a normal configuration without ulceration or narrowing. The internal carotid artery lumen is smooth without stenosis. The external carotid ar mandy is intact. VERTEBRALS: The vertebral arteries have a symmetric diameter. No stenotic lesions are seen. CONCLUSION: Negative for hemodynamically significant stenosis. Both vertebral arteries are patent.. Jed Salazar MD FACR on February 27, 2016 at 15:31 Board Certified Radiologist. This report was verified electronically.
--- NOTE | 2016-02-27 16:06 | EC ---
Study Study Date:02/27/2016 STUDY CONCLUSIONS SUMMARY - Left ventricle: The cavity size was normal. Wall thickness was normal. Systolic function was normal. The estimated ejection fraction was in the range of 60% to 65%. Wall motion was normal; there were no regional wall motion abnormalities. - Aortic valve: Valve area: 2.47cm^2 (Vmax). If LV function is below 40, please consider prescribing an ACEI or ARB or document rationale for non-use. PROCEDURE DATA STUDY STATUS: Elective. Procedure: Transthoracic echocardiography. Image quality was good. Scanning was performed from the parasternal, apical, and subcostal acoustic windows. Study completion: The patient tolerated the procedure well. Transthoracic echocardiography. M-mode, complete 2D, complete spectral Doppler, and color Doppler. Patient status: Inpatient. CARDIAC ANATOMY LEFT VENTRICLE: The cavity size was normal. Wall thickness was normal. Systolic function was normal. The estimated ejection fraction was in the range of 60% to 65%. Wall motion was normal; there were no regional wall motion abnormalities. AORTIC VALVE: Trileaflet; normal thickness leaflets. Doppler: Transvalvular velocity was within the normal range. There was no stenosis. No regurgitation. Valve area: 2.47cm^2 (Vmax). AORTA: Aortic root: The aortic root was normal in size. MITRAL VALVE: Structurally normal valve. Doppler: Transvalvular velocity was within the normal range. There was no evidence for stenosis. No regurgitation. LEFT ATRIUM: The atrium was normal in size. RIGHT VENTRICLE: The cavity size was normal. Wall thickness was normal. PULMONIC VALVE: Doppler: Transvalvular velocity was within the normal range. There was no evidence for stenosis. No regurgitation. TRICUSPID VALVE: Structurally normal valve. Doppler: Transvalvular velocity was within the normal range. Trace regurgitation. PULMONARY ARTERY: The main pulmonary artery was normal-sized. Systolic pressure was within the normal range. RIGHT ATRIUM: The atrium was normal in size. PERICARDIUM: There was no pericardial effusion. SYSTEMIC VEINS: Inferior vena cava: The vessel was normal in size. BASIC MEASUREMENTS ADULT NORMAL Left ventricle LV internal dimension, ED, chordal level, 45.2 mm 43-52 PLAX LV internal dimension, ES, chordal level, 33.5 mm 23-38 PLAX Fractional shortening, chordal level, PLAX *26 % >29 LV posterior wall thickness, ED 8.65 mm IVS/LVPW ratio, ED 1.01 <1.3 Ventricular septum Septal thickness, ED 8.71 mm Aortic valve Leaflet separation 22 mm 15-26 BASIC MEASUREMENTS ADULT NORMAL Aortic valve Leaflet separation 22 mm 15-26 Aorta Root diameter, ED 31 mm 20-37 Left atrium Anterior-posterior dimension, ES 32 mm 19-40 LA/aortic root ratio 1.03 DOPPLER MEASUREMENTS ADULT NORMAL Aortic valve Peak velocity, S 118 cm/s Valve area, Vmax 2.47 cm^2 Pulmonic valve Peak velocity, S 113 cm/s LEGEND: Mean values are shown as u=mean value. Asterisk (*) evans values outside specified normal range. Prepared and signed by Krish Andrade [id number]
[2016-02-27] MEDS ORDERED: LIPI10TA PO (16:46)
[2016-02-27] MEDS ORDERED: ASPI81TA11 PO (16:46)
[2016-02-27] MEDS ORDERED: MECL-62 PO (16:46)
--- NOTE | 2016-02-27 16:46 | HHI.DCPOC ---
Discharge Care Plan Diagnosis: (1) Neurological symptoms (2) Vertigo Goals to Promote Your Health * To prevent worsening of your condition and complications * To maintain your health at the optimal level Directions to Meet Your Goals Take your medications as prescribed Follow your dietary instruction Follow activity as directed Keep your appointments as scheduled Take your immunizations and boosters as scheduled If your symptoms worsen call your PCP, if no PCP go to Urgent Care Center or Emergency Room Smoking is Dangerous to Your Health. Avoid second hand smoke Call the 24-hour hour crisis hotline for domestic abuse at Yogi Corado Feb 27, 2016 16:46
--- NOTE | 2016-02-27 20:33 | EKG ---
Date Performed: 02/26/2016 Time Performed: 16:25:56 PTAGE: 51 years EKG: Sinus rhythm Normal ECG PREVIOUS TRACING : 02/26/2016 08.32 Compared to prior tracing no significant change DOCTOR: Idalia Shell Interpretating Date/Time 02/27/2016 20:31:39
[2016-02-27] MEDS ORDERED: ATORVASTATIN 10 MG TAB PO SCH (21:00)
== END 2016-02-27 17:39 | disposition home or self-care (01) ==
LOC: PHED 08:07 → PHEDA 09:03 → PH3A 12:37
PROVIDERS: ADMIT Family Medicine; ATTEND Family Medicine
DX: G45.9 Transient cerebral ischemic attack, unspecified (principal); R07.89 Other chest pain; R53.1 Weakness; H53.8 Other visual disturbances; F17.210 Nicotine dependence, cigarettes, uncomplicated; R27.0 Ataxia, unspecified; H81.399 Other peripheral vertigo, unspecified ear; Z79.82 Long term (current) use of aspirin; E78.5 Hyperlipidemia, unspecified
CPT/HCPCS: 70450; 70544; 70548; 70551; 72141; 80048; 80061; 80307; 81001; 82550; 82948; 83036; 84443; 84484; 84702; 85025; 85384; 85610; 85730; 86850; 86900; 86901; 93005; 93306; 97110; 97116; 97161; 97165; 97535; 99285; A9579; G0378; G8987; G8988; J2060; J7030; P9612